=== PATIENT | female | born 1995 | race Caucasian/White ===

== ENCOUNTER 2017-08-25 10:27 | Emergency (ER) | payer OTHER | END 2017-08-25 12:05 | disposition left against medical advice (07) | LOC: UCEAST 10:27 | DX: R50.9 Fever, unspecified (principal); J02.9 Acute pharyngitis, unspecified; Z53.21 Procedure and treatment not carried out due to patient leaving prior to being seen by health care provider ==

== ENCOUNTER 2017-08-25 11:31 | Emergency (ER) | payer OTHER ==
[2017-08-25 11:44] VITALS: BP 107/65
[2017-08-25] MEDS ORDERED: Acetaminophen TAB* 325 MG PO ONE (13:22)
--- NOTE | 2017-08-25 13:35 | ED ---
Throat Pain/Nasal Congestion - HPI Summary HPI Summary: Patient presents to the ED with fever x 2 days highest at 104 which decreases with OTC medications. She has been taking ibuprofen. She states today, she continues to feel feverish with a sore throat. Hx of mono, but no history of strep. She is a student, otherwise healthy, takes no medications and denies sick contacts. Denies urinary symptoms, back pain, MOORE, sweats or chills. Endorses mild fatigue. Denies ear pain. - History of Current Complaint Chief Complaint: EDFever Time Seen by Provider: 08/25/17 11:37 Hx Obtained From: Patient Onset/Duration: Sudden Onset Severity: Moderate Associated Signs And Symptoms: Positive: Negative - Epiglottits Risk Factors Epiglottis Risk Factors: Negative - Allergies/Home Medications Allergies/Adverse Reactions: Allergies Allergy/AdvReac Type Severity Reaction Status Date / Time Amoxicillin Allergy Rash Verified 08/25/17 13:37 PMH/Surg Hx/FS Hx/Imm Hx Previously Healthy: Yes Infectious Disease History: No Infectious Disease History: Denies: Traveled Outside the [place] in Last 30 Days - Social History Occupation: Unemployed, Student Lives: Dormitory/Roommates Alcohol Use: None Hx Substance Use: No Substance Use Type: Reports: None Hx Tobacco Use: No Smoking Status (MU): Never Smoked Tobacco Review of Systems Positive: Fever. Negative: Chills, Fatigue Eyes: Negative Positive: Sore Throat Cardiovascular: Negative Respiratory: Negative Genitourinary: Negative Positive: no symptoms reported, see HPI Skin: Negative Neurological: Negative All Other Systems Reviewed And Are Negative: Yes Physical Exam Triage Information Reviewed: Yes Vital Signs On Initial Exam: Initial Vitals Temp Pulse Resp BP Pulse Ox 99.4 F 77 18 107/65 99 08/25/17 11:41 08/25/17 11:41 08/25/17 11:41 08/25/17 11:41 08/25/17 11:41 Completion Of Physical Exam Limited Due To: Dementia Appearance: Positive: Well-Appearing, Well-Nourished Skin: Positive: Warm, Skin Color Reflects Adequate Perfusion, Diaphoretic Head/Face: Positive: Normal Head/Face Inspection Eyes: Positive: Normal, RENETTA, Conjunctiva Clear ENT: Positive: Pharynx normal, Uvula midline. Negative: Tonsillar swelling, Tonsillar exudate, Trismus, Muffled voice, Hoarse voice, Dental tenderness, Sinus tenderness Neck: Positive: Supple, No Lymphadenopathy Respiratory/Lung Sounds: Positive: Clear to Auscultation, Breath Sounds Present Cardiovascular: Positive: Normal, RRR, Pulses are Symmetrical in both Upper and Lower Extremities Musculoskeletal: Positive: Normal, Strength/ROM Intact Neurological: Positive: Speech Normal Psychiatric: Positive: Normal, Affect/Mood Appropriate AVPU Assessment: Alert Diagnostics - Vital Signs Vital Signs Temp Pulse Resp BP Pulse Ox 08/25/17 11:41 99.4 F 77 18 107/65 99 - Laboratory Result Diagrams: 08/25/17 13:39 Lab Statement: Any lab studies that have been ordered have been reviewed, and results considered in the medical decision making process. EENT Course/Dx - Course Course Of Treatment: During the course of treatment, patient is evaluated for fever and sore throat. Strep and mono negative. Tylenol with relief. She is given prescriptions for tramadol and magic mouth wash. Note given for school. Likely pharyngitis. She will follow up with student health. Treatment options explained to patient. Patient understands the plan, voices no concerns at this time and understands the return precatuions given to them if any symptoms become worse. They are OK for discharge at this time. VS stable on discharge. - Differential Diagnoses Differential Diagnoses: Tonsilitis - Diagnoses Provider Diagnoses: Pharyngitis Discharge - Discharge Plan Condition: Stable Disposition: HOME Prescriptions: Magic Mouth Was-AJITH/MAAL/LIDO* 5 ml SWISH SWAL QID #100 ml traMADol TAB* [Ultram*] 50 mg PO Q6HR PRN #6 tab MDD 4 PRN Reason: Pain traMADol TAB* [Ultram*] 50 mg PO Q6HR PRN #8 tab MDD 4 PRN Reason: Pain traMADol TAB* [Ultram*] 50 mg PO Q6H PRN #8 tab MDD 4 PRN Reason: Pain Patient Education Materials: Pharyngitis (ED) Forms: *School Release [facility] [Primary Care Provider] - Additional Instructions: Follow up with student health if symptoms become worse Tylenol and ibuprofen intermittently for fever and pain Magic Mouth wash for discomfort For pain not well controlled with ibuprofen, you may take tramadol 50mg every 6 hours as directed Out of school x 2 days. [place] and strep both negative I believe you have a pharyngitis Cepacol over the counter lozenges help with throat pain How can I manage my symptoms? Use lozenges, ice, soft foods, or popsicles to soothe your throat. Drink juice, milk shakes, or soup if your throat is too sore to eat solid food. Drinking liquids can also help prevent dehydration. Gargle with salt water. Mix teaspoon salt in a 1 cup of warm water and gargle. This may help reduce swelling in your throat. Do not smoke. Nicotine and other chemicals in cigarettes and cigars can cause lung damage and make your symptoms worse. Ask your healthcare provider for information if you currently smoke and need help to quit. E-cigarettes or smokeless tobacco still contain nicotine. Talk to your healthcare provider before you use these products.
[2017-08-25 13:59] LABS: Hematocrit 39 % (35-47); Hemoglobin 12.9 g/dl (12.0-16.0); Mean Corpuscular HGB Conc 33 g/dl (31-36); Mean Corpuscular Hemoglobin 28 pg (27-31); Mean Corpuscular Volume 85 fL (80-97); Mean Platelet Volume 10 um3 (7.4-10.4); Red Cell Distribution Width 13 % (10.5-15); White Blood Count 6.8 10^3/ul (3.5-10.8)
[2017-08-25 14:07] LABS: Mono Internal Control QC Line Present
[2017-08-25] MEDS ORDERED: Magic Mouth Was-BEN/MAAL/LIDO SWISH SWAL ONE (14:31)
== END 2017-08-25 15:01 | disposition home or self-care (01) ==
LOC: MERGE 11:31 → ED 11:31
DX: J02.9 Acute pharyngitis, unspecified (principal)
CPT/HCPCS: 36415; 85025; 86308; 87651; 99282; A9270-GY